=== PATIENT | male | born 2000 | race Two or more races ===

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

== ENCOUNTER 2021-03-26 20:37 | Emergency (ER) | payer SELFPAY ==
[~2021-03-26] VITALS: Ht 170.2 cm; Wt 81.6 kg
[2021-03-27] MEDS ORDERED: NEOMYCIN-BACITRACIN-POLYM UNITDOSE PKG TOP OINT TOP ONE (01:15)
[2021-03-27 01:21] VITALS: BP 137/69
[2021-03-27] MEDS ORDERED: cefTRIAXone SOD 1,000 MG VL IM ONE (01:45)
== END 2021-03-27 02:55 | disposition home or self-care (01) ==
LOC: ER 20:37
DX: S61.002A Unspecified open wound of left thumb without damage to nail, initial encounter (principal); I10 Essential (primary) hypertension; F12.10 Cannabis abuse, uncomplicated; W26.0XXA Contact with knife, initial encounter; Y93.9 Activity, unspecified; Y92.69 Other specified industrial and construction area as the place of occurrence of the external cause; Y99.0 Civilian activity done for income or pay
CPT/HCPCS: 96372; 99283; J0696